=== PATIENT | male | born 1985 | race Caucasian/White ===

== ENCOUNTER 2016-10-29 13:10 | Emergency (ER) | payer OTHER ==
--- NOTE | ~2016-10-29 | CR142 ---
[facility] A Service of [facility] RADIOLOGY TEXT RESULTS PATIENT: PARTH STINSON LOCATION: [facility] : [birth year] UNIT #: [id number] AGE: [address]: Sánchez Watson MD SEX: M ORDER DR: [id number] [facility] [address] [facility] [place], [place] [address] [id number] E MR#: [id number] Acc #: [id number] NAME: PARTH STINSON : 1985 SEX: M STUDY DATE/TIME: 10/29/2016 13:36 UNIT: [facility] ROOM: STUDY DESCRIPTION: CR Hand Min 3 Views Rt Attending Physician: Sánchez Watson M.D. Ordering Physician: Sánchez Watson M.D. Primary Care Physician: No Primary Care Physician MEDICAL IMAGING REPORT This report is preliminary unless electronic signature is present EXAM Right hand, 10/29/2016. HISTORY 31-year-old male with right hand pain after hitting mirror today. Pain in the third and fourth digits. COMPARISON None FINDINGS 3 views of the right hand demonstrate no acute fracture or dislocation. No radiopaque foreign bodies. IMPRESSION No radiopaque foreign bodies. No acute bony abnormality. Dictated by... Giancarlo Smallwood M.D. THIS IS AN ELECTRONICALLY VERIFIED REPORT Giancarlo Smallwood M.D. at 10/30/2016 8:58 AM JANIS/nikkie TD: 10/29/2016 14:02 JOB #: [id number] MEDICAL IMAGING REPORT Page 1 of 1 COPY
[~2016-10-29 13:10] MED LIST: AMOXICILLIN PO; AMOXICILLIN500 M1 PO; AZITHROMYCIN250 MG PO; BACTRIM DS TABL1 TA1 PO; BACTRIM DS TABL1 TAB PO; BENZONATATE PO; FLONASE16 GM; IBUPROFEN PO; IBUPROFEN600 MG PO; IBUPROFEN800 MG PO; KETOPROFEN PO; MUCINEX DM1 TAB.SR . PO; NAPROSYN250 M1 PO; PEN-VEE K PO; PHENERGAN25 M1 PO; PROMETHAZINE-D240 ML PO; VICODIN 5/1 TAB 5/50 PO; VOLTAREN50 MG PO; ZITHROMAX500 MG PO; [UNRECOGNIZED DRUG - OTHER] PO
== END 2016-10-29 15:30 | disposition home or self-care (01) ==
LOC: CED 13:10
DX: S09.90XA Unspecified injury of head, initial encounter (principal); S61.212A Laceration without foreign body of right middle finger without damage to nail, initial encounter; W25.XXXA Contact with sharp glass, initial encounter; Y92.9 Unspecified place or not applicable; F17.200 Nicotine dependence, unspecified, uncomplicated
CPT/HCPCS: 12002; 73130; 99283; 99284